=== PATIENT | female | born 1960 | race Caucasian/White ===

== ENCOUNTER → 2017-01-02 | Day surgery (SDC) | payer BC ==
[~2017-01-02] MED LIST: FERROUS SULFAT325 MG PO; NORCO 5-325 TA1 EACH PO; ZANTAC150 MG PO
[2017-01-02 11:09] LABS: HEMOGLOBIN 10.8 gm/dl (12.3-15.3); RED BLOOD COUNT 4.97 M/UL (4.00-5.10); WHITE BLOOD COUNT 6.8 K/UL (4.5-11.0)
== END | disposition home or self-care (01) ==
LOC: OR 08:50
PROVIDERS: Obstetrics & Gynecology
PROC: 0U5B8ZZ Destruction of Endometrium, Via Natural or Artificial Opening Endoscopic (ICD-10-PCS; principal; 2017-01-02 13:30)
DX: N92.0 Excessive and frequent menstruation with regular cycle (principal); D64.9 Anemia, unspecified; M72.2 Plantar fascial fibromatosis; Z87.19 Personal history of other diseases of the digestive system; Z82.49 Family history of ischemic heart disease and other diseases of the circulatory system; Z83.79 Family history of other diseases of the digestive system; Z83.49 Family history of other endocrine, nutritional and metabolic diseases
CPT/HCPCS: 81001; 84703; 85025; J1885; J2795; J7030; J7120